=== PATIENT | female | born 1950 | race African-American/Black ===

== ENCOUNTER 2017-10-29 16:30 | Emergency (ER) | payer OTHER ==
[~2017-10-29] VITALS: Ht 165.1 cm; Wt 103.4 kg
[~2017-10-29 16:30] MED LIST: CYANOCOBALAM1000 MCG PO; FORTAMET500 M1 PO; GLIPIZIDE ER2.5 MG PO; GLUCOTROL10 MG PO; JANUVIA100 MG PO; KENALOG,ARISTOC80 GM TP; PHENTERMINE HCL15 MG PO; PRILOSEC40 MG PO; PRINIVIL10 MG PO; SYNTHROID125 MCG PO; TOPROL XL100 MG PO; VICTOZA0.6 MG/0.1 SQ; VITAMIN D-32000 UNI2 PO
[2017-10-29 18:18] VITALS: BP 174/82
== END 2017-10-29 18:20 | disposition home or self-care (01) ==
LOC: EME 16:30
DX: S09.90XA Unspecified injury of head, initial encounter (principal); W01.198A Fall on same level from slipping, tripping and stumbling with subsequent striking against other object, initial encounter; Y93.89 Activity, other specified; E11.9 Type 2 diabetes mellitus without complications; E03.9 Hypothyroidism, unspecified; Z79.84 Long term (current) use of oral hypoglycemic drugs; Z91.040 Latex allergy status; Z88.1 Allergy status to other antibiotic agents
CPT/HCPCS: 99281; 99283